=== PATIENT | male | born 1995 | race Caucasian/White ===

== ENCOUNTER 2018-06-20 07:18 | Day surgery (SDC) | payer OTHER ==
[2018-06-19 13:00] LABS: Basophils # (auto) 0.1 uL; Basophils % (auto) 0.9 % (0.0-2.0); Eosinophils # (auto) 0.2 uL; Eosinophils % (auto) 4.2 % (0.0-7.0); Hematocrit 45.5 % (41.0-53.0); Hemoglobin 15.1 g/dL (13.5-17.5); Lymphocytes # (auto) 1.6 uL; Lymphocytes % (auto) 26.3 % (10.0-50.0); Mean Corpuscular Hemoglobin 27.7 pg (28.0-32.0); Mean Corpuscular Hgb Conc. 33.2 g/dL (32.0-36.0); Mean Corpuscular Volume 83.4 fL (80.0-100.0); Monocytes # (auto) 0.6 uL; Monocytes % (auto) 9.6 % (0.0-12.0); Neutrophils # (auto) 3.5 uL; Nucleated Red Blood Cells % 0.3 %; Platelet Count (auto) 245 10^3/uL (140-450); Red Blood Cells 5.45 10^6/uL (4.5-5.90); Red Cell Distribution Width 14.3 % (11.8-14.3); White Blood Cell 5.9 10^3/uL (4.4-10.8)
[2018-06-19 13:09] LABS: INR 1.05 (0.9-1.15); Partial Thromboplastin Time 26.8 sec (23.78-33.04); Prothrombin Time 11.2 sec (9.27-12.13)
[~2018-06-20] VITALS: Ht 182.9 cm; Wt 88.5 kg
[2018-06-20] MEDS ORDERED: ceFAZolin 1GM/50ML 50 ML IV ONE (07:35)
[2018-06-20] MEDS ORDERED: methylPREDNISolone ACETATE 80 MG/ML VL ONE (09:13)
[2018-06-20] MEDS ORDERED: NEOMYCIN-BACITRACIN-POLYM 15GM TOP OINT TOP ONE (09:13)
[2018-06-20] MEDS ORDERED: BUPIVACAINE 0.75% INJ 10ML MPV SDV IJ ONE (09:14)
[2018-06-20] MEDS ORDERED: fentaNYL CITRATE 100 MCG/2 ML VL ONE (09:22)
[2018-06-20] MEDS ORDERED: MEPERIDINE HCL (50 MG/ML) 1 ML VIAL ONE (09:22)
[2018-06-20] MEDS ORDERED: MIDAZOLAM HCL 1MG/1ML-2 ML VIAL ONE (09:22)
[2018-06-20] MEDS ORDERED: DEXAMETHASONE SOD PHOS 10MG/1ML VIAL INJ ONE (09:53)
[2018-06-20] MEDS ORDERED: PROPOFOL 10 MG/ML 20 ML IV ONE (09:53)
[2018-06-20] MEDS ORDERED: KETOROLAC TROMETH 30 MG/ML 1ML VIAL ONE (09:53)
[2018-06-20] MEDS ORDERED: MORPHINE SULF INJ 2 MG/ML SYRINGE 1ML IV PRN (10:00)
[2018-06-20] MEDS ORDERED: KETOROLAC TROMETH 30 MG/ML 1ML VIAL IV ONE (10:00)
[2018-06-20] MEDS ORDERED: MORPHINE SULFATE 4 MG/ML SYR/VIAL IV ONE (10:00)
[2018-06-20] MEDS ORDERED: ePHEDrine SULFATE 50 MG/ML AMP IV PRN (10:00)
[2018-06-20] MEDS ORDERED: ONDANSETRON HCL 4 MG/2 ML VIAL IV ONE (10:00)
[2018-06-20] MEDS ORDERED: LABETALOL HCL 5 MG/ML 4ML SYRINGE IV PRN (10:00)
[2018-06-20] MEDS ORDERED: HYDROmorphone HCL 2 MG/ML VL IV PRN (10:00)
[2018-06-20 11:26] VITALS: BP 157/91
== END 2018-06-20 11:30 | disposition home or self-care (01) ==
LOC: SUR 07:18
PROVIDERS: ATTEND Podiatrist Foot & Ankle Surgery
DX: M21.071 Valgus deformity, not elsewhere classified, right ankle (principal); M89.8X7 Other specified disorders of bone, ankle and foot; S93.331A Other subluxation of right foot, initial encounter; I10 Essential (primary) hypertension
CPT/HCPCS: 27687; 28725; 36415; 73620; 85025; 85610; 85730; J0690; J1100; J1885; J2175; J2250; J2704; J3010; J3490; C1769